=== PATIENT | female | born 1995 | race African-American/Black ===

== ENCOUNTER 2025-02-27 23:55 | Emergency (ER) | payer BC ==
[~2025-02-27] VITALS: Ht 162.6 cm; Wt 65.4 kg
[2025-02-28 00:05] VITALS: BP 116/78; TEMP 37.1; O2SAT 99
[2025-02-28 00:08] VITALS: PULSE 100; RESP 20; O2SAT 99
[2025-02-28 00:51] LABS: BASOPHILS % 0.8 % (0.0-2.0); EOSINOPHILS % 1.8 % (0.0-5.0); HEMATOCRIT. 36.7 % (36.0-48.0); HEMOGLOBIN. 11.9 g/dL (12.0-16.0); LYMPHOCYTES % 38.9 % (20.0-50.0); MEAN PLATELET VOLUME 8.4 fl (7.4-10.4); MONOCYTES % 6.1 % (2.0-8.0); NEUTROPHILS % 52.4 % (40.0-76.0); PLATELET 292 x1000/uL (130-400); RED BLOOD CELL COUNT 4.37 mill/uL (4.2-5.4); RED CELL DISTRIBUTION WIDTH 13.2 % (11.6-14.6)
[2025-02-28 00:53] LABS: CREATININE 0.7 mg/dL (0.6-1.0); UREA NITROGEN BLOOD 9 mg/dL (9-23)
[2025-02-28 01:00] LABS: TROPONIN I HIGH SENSITIVITY < 4 ng/L (3.0-34)
== END 2025-02-28 02:51 | disposition left against medical advice (07) ==
LOC: EDBD 23:55 → ER 23:55
DX: R06.02 Shortness of breath (principal); Z53.21 Procedure and treatment not carried out due to patient leaving prior to being seen by health care provider
CPT/HCPCS: 36415; 71045; 80048; 84484; 85025; 93005